=== PATIENT | male | born 1945 | race Asian ===

== ENCOUNTER 2022-10-30 13:00 | Inpatient (IN) | payer BC, MEDICAID ==
[~2022-10-30] VITALS: Ht 167.6 cm; Wt 70.3 kg
[2022-10-30 13:02] VITALS: BP 124/73
--- NOTE | 2022-10-30 13:03 | NUR ---
PT RECEIVED, CARE ASSUMED. PT BIB EMS FOR EVALUATION OF FEVER FOLLOWED BY "SEIZURE-LIKE BODY SHAKING" PT DOSEN'T HAVE HX OF SZ. PT SPEAKS VIET[place]ESE, BUT SEEMS TO BE ORIENTED. NOTED" HEART RATE @ 139. PT IN BED AWAITING TO BE SEEN BY
[2022-10-30] MEDS ORDERED: NACL 0.9% 1,000 ML IV SCH (13:10)
[2022-10-30] MEDS ORDERED: cefTRIAXone 1,000 MG in DEXT 5% MINI-BAG PLUS 50 ML IV ONE (13:10)
--- NOTE | 2022-10-30 13:20 | NUR ---
PT FEELS WARM TO TOUCH, DIAPHORETIC. PT PULLED OUT IV HEPLOCK, INSERTED 20G IV TO LEFT WRIST. INITIATED SZ PRECAUTIONS. WILL CONTINUE TO MONITOR
[2022-10-30] MEDS ORDERED: cefTRIAXone 1,000 MG VIAL ONE (13:45)
[2022-10-30 13:47] LABS: BASOPHILS % (AUTO) 0.2 % (0.0-2.0); EOSINOPHILS # (AUTO) 0.1 K/uL (0-0.4); EOSINOPHILS % (AUTO) 0.8 % (0.0-4.0); HEMATOCRIT 31.1 % (36-52); HEMOGLOBIN 10.5 g/dL (12.0-18.0); LYMPHOCYTES # (AUTO) 0.2 K/uL (2.0-11.5); LYMPHOCYTES % (AUTO) 2.5 % (20.5-51.1); MEAN CORPUSCULAR HEMOGLOBIN 32 pg (27-31); MEAN CORPUSCULAR HGB CONC 34 g/dL (33-37); MEAN CORPUSCULAR VOLUME 95.4 fL (80-94); MONOCYTES # (AUTO) 0.1 K/uL (0.8-1.0); MONOCYTES % (AUTO) 1.1 % (1.7-9.3); NEUTROPHILS # (AUTO) 8.9 K/uL (1.8-7.7); NEUTROPHILS % (AUTO) 95.4 % (42.2-75.2); PLATELET COUNT (AUTO) 130 K/uL (140-450); RED BLOOD CELL COUNT(AUTO) 3.26 MIL/uL (4.20-6.10); RED CELL DISTRIBUTION WIDTH 14.7 % (11.6-13.7); WHITE BLOOD COUNT (AUTO) 9.3 K/uL (4.8-10.8)
[2022-10-30 14:04] LABS: ALBUMIN 2.2 g/dL (3.4-5.0); ANION GAP 21.3 (8-16); ASPARTATE AMINOTRANSFERASE 26 U/L (15-37); CARBON DIOXIDE 19.4 mmol/L (21-32); CHLORIDE 101 mmol/L (98-107); CREATININE 1.4 mg/dL (0.6-1.3); GLUCOSE 136 mg/dL (74-106); POTASSIUM 3.7 mmol/L (3.5-5.1); SODIUM SERUM 138 mmol/L (136-145); TOTAL BILIRUBIN 2.1 mg/dL (0.0-1.0); UREA NITROGEN, BLOOD 22 mg/dL (7-18)
[2022-10-30] MEDS ORDERED: NACL 0.9% 1,000 ML IV ONE (14:40)
[2022-10-30] MEDS ORDERED: ASPIRIN 325 MG TAB PO ONE (14:55)
[2022-10-30 15:13] LABS: APPEARANCE,URINE HAZY (CLEAR); BILIRUBIN,URINE 3+ (NEGATIVE); BLOOD, URINE 3+ (NEGATIVE); COLOR,URINE AMBER (YELLOW); LEUKOCYTE ESTERASE ,URINE 1+ (NEGATIVE); NITRITE, URINE NEGATIVE (NEGATIVE); PH,URINE 7.5 (5.0-9.0); UGLUCOSE NEGATIVE (NEGATIVE)
[2022-10-30 15:14] LABS: RBC,URINE 20-50 /HPF (0-5); WBC,URINE 0-5 /HPF (0-5)
--- NOTE | 2022-10-30 20:39 | NUR ---
Patient lying in bed, A/Ox4, chest rise and fall symmetrical, no c/o pain or s/s of distress, patient on monitor, siezure pads in place.
--- NOTE | 2022-10-30 20:43 | NUR ---
Med Reconciliation done with [place] official court interpreter, number [id number].
[2022-10-30] MEDS ORDERED: HYDR-5080 PO (20:48)
[2022-10-30] MEDS ORDERED: CIPR250T3 PO (20:52)
[2022-10-30] MEDS ORDERED: TRAM50TA3 PO (20:58)
[2022-10-30] MEDS ORDERED: ACET325C8 PO (20:58)
[2022-10-30] MEDS ORDERED: ATA25 PO (20:58)
[2022-10-30] MEDS ORDERED: ACET-9527 PO (20:58)
--- NOTE | 2022-10-30 21:30 | NUR ---
Patient will be admitted to care of Sam DUKE. Admited to Telemetry. Will go to room 111B. Belongings list completed. Report to Sam DUKE, Sam DUKE verbalized understanding of report, no further questions.
[2022-10-30] MEDS ORDERED: MAG SULF 2000 MG/WATER PREMIX 50 ML IV PRN (21:50)
[2022-10-30] MEDS ORDERED: POTASSIUM CHLORIDE 10 MEQ TABER PO PRN (21:50)
[2022-10-30] MEDS ORDERED: ACETAMINOPHEN 325 MG TAB PO PRN (21:50)
[2022-10-30] MEDS ORDERED: HYDROcodone/APAP 7.5/325 MG 1 TAB PO PRN (21:50)
[2022-10-30] MEDS ORDERED: ONDANSETRON 4 MG/2 ML VIAL IVP PRN (21:50)
--- NOTE | 2022-10-30 21:55 | NUR ---
Patient safely taken, via gurney, to Telemetry floor by Steffany DUKE and MARIO Estrella.
[2022-10-30 22:37] VITALS: BP 130/77
[2022-10-30 23:03] LABS: PROTHROMBIN TIME 13.3 secs (10.8-13.4)
[2022-10-30] MEDS ORDERED: PIPERACILLIN/TAZOBACTAM 3.375 GM VIAL IV ONE (23:11)
[2022-10-30 23:12] LABS: CHOL/HDL RATIO 1.6 (1-4.5); FREE T4 (FREE THYROXINE) 1.18 ng/dL (0.76-1.46); THYROID STIMULATING HORMONE 1.19 uIU/mL (0.34-3.74)
[2022-10-30] MEDS: PIPERACILLIN/TAZOBACTAM 3.375 GM in DEXTROSE 5% 50 ML IV SCH (23:36)
--- NOTE | 2022-10-30 23:48 | NUR ---
EKG PERFORMED ORDERED AND ABNORM RESULTS REPORTED TO RN EKG WAS PLACED IN PT CHART
--- NOTE | 2022-10-30 23:56 | NUR ---
ADMITTED 77Y.O.MALE TO ROOM 111B.PLACED ON BED.ORIENTED TO ROOM.CALL SYSTEM EXPLAINED AND IN REACH.PT IS A&OX4.[place] SPEAKING.SL PATENT IN RT.FA .STARTED 1ST DOSE OF ZOSYN AND INFUSING WELL.HAS DRAINAGE TUBE W/DARK SANTI COLOR OUT PUT IN RT.FLANK.PT DOESN'T KNOW WHAT IS THAT BUT HE SAID HE HAS HIGH LIVER ENZYME AND THEY PUT THIS FOR ME.DENIED ANY PAIN AT TIME OF ADMISSION.WILL CONT.MONITORING.TROPONINTRENDIG DOWN TO 289 AND LACTIC ACID TRENDING DOWN TO 1.4.
[2022-10-31] VITALS: BP 115/74
--- NOTE | 2022-10-31 00:43 | NUR ---
SLEEPING W/O S/S OF ANY DISTRESS.VS STABLE .HR IS SR W/INVERTED T WAVE.1ST DOSE OF ZOSYN FINISHED,PT TOLERATED WELL.WILL CONT.MONITORING.
[2022-10-31 04:00] VITALS: BP 130/78
[2022-10-31] MEDS ORDERED: PIPERACILLIN/TAZOBACTAM 3.375 GM VIAL IV ONE (04:13)
[2022-10-31] MEDS: PIPERACILLIN/TAZOBACTAM 3.375 GM in DEXTROSE 5% 50 ML IV SCH (05:42)
--- NOTE | 2022-10-31 06:22 | NUR ---
SLEPT WELL.NO DISTRESS NOTED AT THIS TIME.EMPTIED 200 ML BILIARY DRAINAGE BAG.CONDITION STABLE.
--- NOTE | 2022-10-31 07:14 | NUR ---
RECEIVED REPORT FROM RESIDENT SERVICES SUPERVISOR NURSE YO FOR CONTINUITY OF CARE. PT AWAKE, SITTING IN BED. A&O4, KHMER SPEAKING BUT CAN UNDERSTAND SOME MALAGASY. ON MANAGER FILTER. RESPIRATIONS EVEN AND UNLABORED ON RA. NO DISTRESS NOTED. INTERNAL-EXTERNAL BILIARY DRAINAGE IN PLACE, DRAINING WELL. PT NPO EXCEPT MEDS. PT AND FISH TENDER AWARE. NPO SIGN AT THE DOOR IN PLACE. CALL LIGHT WITHIN REACH. SAFETY PRECAUTIONS IN PLACE.
[2022-10-31 07:16] LABS: BASOPHILS # (AUTO) 0.1 K/uL (0.00-0.22); BASOPHILS % (AUTO) 0.3 % (0.0-2.0); EOSINOPHILS # (AUTO) 0.1 K/uL (0-0.4); EOSINOPHILS % (AUTO) 0.7 % (0.0-4.0); HEMATOCRIT 35.9 % (36-52); HEMOGLOBIN 11.8 g/dL (12.0-18.0); LYMPHOCYTES # (AUTO) 1.1 K/uL (2.0-11.5); LYMPHOCYTES % (AUTO) 6.3 % (20.5-51.1); MEAN CORPUSCULAR HEMOGLOBIN 31 pg (27-31); MEAN CORPUSCULAR HGB CONC 33 g/dL (33-37); MEAN CORPUSCULAR VOLUME 95.2 fL (80-94); MONOCYTES # (AUTO) 0.7 K/uL (0.8-1.0); NEUTROPHILS # (AUTO) 15.1 K/uL (1.8-7.7); NEUTROPHILS % (AUTO) 88.7 % (42.2-75.2); PLATELET COUNT (AUTO) 146 K/uL (140-450); RED BLOOD CELL COUNT(AUTO) 3.77 MIL/uL (4.20-6.10); RED CELL DISTRIBUTION WIDTH 15.2 % (11.6-13.7)
[2022-10-31 07:30] LABS: CARBON DIOXIDE 18.8 mmol/L (21-32); CHLORIDE 106 mmol/L (98-107); CREATININE 1.1 mg/dL (0.6-1.3); GLUCOSE 112 mg/dL (74-106); POTASSIUM 3.8 mmol/L (3.5-5.1); SODIUM SERUM 139 mmol/L (136-145); UREA NITROGEN, BLOOD 17 mg/dL (7-18)
[2022-10-31 07:31] LABS: MAGNESIUM 2.1 mg/dL (1.8-2.4); PHOSPHORUS 3.1 mg/dL (2.5-4.9)
[2022-10-31 08:00] VITALS: BP 125/70
[2022-10-31] MEDS ORDERED: PANTOPRAZOLE 40 MG INJ VIAL IVP SCH (09:00)
[2022-10-31] MEDS ORDERED: DOCUSATE SODIUM 100 MG GELCAP PO SCH (09:00)
--- NOTE | 2022-10-31 09:56 | NUR ---
ADMINISTERED DUE MEDS. FOUND PT EATING WITH DAUGHTER AT BEDSIDE. WILL INFORM MD. CLARIFIED WITH PT PT AND DAUGHTER THAT PT IS ON NPO EXCEPT FOR MEDS. DISCUSSED RISKS AND BENEFITS, VERBALIZED UNDERSTANDING.
--- NOTE | 2022-10-31 11:50 | NUR ---
PT CHECKED AND SEEN BY DR CHACKO. PER , PT WILL SIGN AMA. PT WILL GO BACK TO [facility] WHERE THE BILIARY DRAINAGE WAS PLACED. AMA FORM WAS PRINTED AND SIGNED BY PT. RISKS AND BENEFITS OF GOING AMA WERE EXPLAINED TO THE PT. PT GETTING READY TO LEAVE WITH DAUGHTER AT BEDSIDE.
[2022-10-31 12:00] VITALS: BP 120/73
--- NOTE | 2022-10-31 12:45 | NUR ---
PT LEFT AMA. REMOVED IV CATHETER TIP INTACT. REMOVED ID WRIST BAND. ALL BELONGINGS TAKEN UPON DC. PT LEFT MST UNIT WITH DAUGHTER.
== END 2022-10-31 13:35 | disposition left against medical advice (07) | DRG 871 ==
LOC: EDBD 13:00 → MED 13:00 → MTU 17:45
DX: A41.9 Sepsis, unspecified organism (principal); J18.9 Pneumonia, unspecified organism; R65.21 Severe sepsis with septic shock; Z20.822 Contact with and (suspected) exposure to COVID-19; Z53.29 Procedure and treatment not carried out because of patient's decision for other reasons; D64.9 Anemia, unspecified; R56.9 Unspecified convulsions; I25.10 Atherosclerotic heart disease of native coronary artery without angina pectoris; Z86.73 Personal history of transient ischemic attack (TIA), and cerebral infarction without residual deficits; Z85.89 Personal history of malignant neoplasm of other organs and systems; K83.8 Other specified diseases of biliary tract; K62.89 Other specified diseases of anus and rectum
CPT/HCPCS: 36415; 70450; 71045; 80048; 80053; 81001; 82140; 82150; 83036; 83605; 83690; 83735; 83880; 84100; 84439; 84443; 84484; 85025; 85610; 85730; 87040; 87081; 87086; 93005; 96374; 99285; C9113; J0696; J1644; J2543; J7060; Q0092